=== PATIENT | male | born 1950 | race Caucasian/White ===

== ENCOUNTER 2019-03-10 11:22 | Outpatient (CLI) | payer MEDICARE ==
--- NOTE | 2019-03-10 11:40 | RAD ---
EXAM: Two views chest PROVIDED CLINICAL HISTORY: Bronchitis COMPARISON: None FINDINGS: Cardiac and mediastinal silhouette appears within normal limits. Lungs appear free of significant opa city. No pleural fluid or pneumothorax apparent. IMPRESSION: No evidence for an acute cardiopulmonary process.
== END 2019-03-10 11:23 | disposition home or self-care (01) ==
LOC: MADRAD 11:22
PROVIDERS: ATTEND Family Medicine
DX: J40 Bronchitis, not specified as acute or chronic (principal)
CPT/HCPCS: 71046

== ENCOUNTER 2020-03-07 17:03 | Outpatient (CLI) | payer MEDICARE ==
--- NOTE | 2020-03-07 19:01 | RAD ---
TWO VIEWS CHEST: Date: 03-07-2020 PROVIDED CLINICAL HISTORY: Chest pain FINDINGS: Comparison 03-10-2019. Cardiac and venous silhouette is within normal limits. Lungs appear clear. No pleural fluid or pneumo thorax apparent. Mild elevation of the right hemidiaphragm is stable with respect to prior. IMPRESSION: No evidence for an acute cardiopulmonary process. POS: [place]
== END 2020-03-07 17:04 | disposition home or self-care (01) ==
LOC: MADRAD 17:03
PROVIDERS: ATTEND Family Medicine
DX: R07.89 Other chest pain (principal)
CPT/HCPCS: 71046

== ENCOUNTER 2020-09-28 14:14 | Outpatient (CLI) | payer MEDICARE | END 2020-09-28 14:15 | disposition home or self-care (01) | LOC: MADLAB 14:14 | PROVIDERS: ATTEND Family Medicine | DX: J06.9 Acute upper respiratory infection, unspecified (principal); Z20.822 Contact with and (suspected) exposure to COVID-19 | CPT/HCPCS: 71046 ==